=== PATIENT | female | born 1960 | race Asian ===

== ENCOUNTER 2020-01-12 23:57 | Emergency (ER) | payer OTHER ==
[2020-01-13] MEDS ORDERED: methylPREDNISolone NA SUCC 125 MG/2 ML VIAL IVPB ONE (00:05)
[2020-01-13] MEDS ORDERED: SODIUM CHLORIDE 0.9% 500 ML INFUS.BAG IV ONE (00:05)
[2020-01-13] MEDS ORDERED: FAMOTIDINE 20 MG/50 ML IVPB 20 MG/50 ML MG IVPB ONE ×2 (00:05→00:57)
[2020-01-13] MEDS ORDERED: methylPREDNISolone NA SUCC 125 MG/2 ML VIAL ONE (00:09)
[2020-01-13 00:19] VITALS: BP 112/88; TEMP 98.6; BMI 26.4
[2020-01-13] MEDS ORDERED: EPINEPHrine 1:1,000 0.3 MG/0.3 ML SYR IM ONE (00:20)
[2020-01-13] MEDS ORDERED: EPINEPHrine/PF 1 MG/1 ML (1:1,000) AMPULE ONE (00:23)
[2020-01-13 00:27] LABS: BASO % 1.2 % (0-2.0); EOS % 0.5 % (0-4.5); HEMATOCRIT 48.7 % (32.4-45.2); HEMOGLOBIN 16.5 GM/dL (10.7-15.3); LYMPH % 57.9 % (8-40); MCH 29.8 pg (25.7-33.7); MEAN CELL VOLUME 87.8 fl (80-96); MEAN PLT VOLUME 7.7 fl (7.5-11.1); NEUT % 34.4 % (42.8-82.8); PLATELET COUNT 384 K/MM3 (134-434); RBC 5.55 M/mm3 (3.60-5.2); RDW 13.2 % (11.6-15.6); WHITE BLOOD COUNT 9.5 K/mm3 (4.0-10.0)
[2020-01-13 00:34] LABS: INR 0.77 (0.83-1.09); PROTHROMBIN TIME (PATIENT) 9.6 SEC (9.7-13.0)
[2020-01-13 00:37] LABS: ACTIVATED PTT 31.4 SECONDS (25.2-36.5)
[2020-01-13 00:45] LABS: POTASSIUM 3.9 mmol/L (3.5-5.1)
[2020-01-13 00:48] LABS: CALCIUM 8.5 mg/dL (8.5-10.1)
[2020-01-13 00:49] LABS: ALBUMIN 3.8 g/dl (3.4-5.0); BLOOD UREA NITROGEN 17.4 mg/dL (7-18)
[2020-01-13 00:51] LABS: CREATININE 0.8 mg/dL (0.55-1.3)
[2020-01-13 00:53] LABS: TOT PROT 7.5 g/dl (6.4-8.2)
[2020-01-13 07:41] VITALS: PULSE 74
== END 2020-01-13 08:05 | disposition home or self-care (01) ==
LOC: JER 23:57
PROC: 3E033NZ Introduction of Analgesics, Hypnotics, Sedatives into Peripheral Vein, Percutaneous Approach (ICD-10-PCS; principal; 2020-01-13)
PROC: 3E033GC Introduction of Other Therapeutic Substance into Peripheral Vein, Percutaneous Approach (ICD-10-PCS; 2020-01-13)
PROC: 3E023NZ Introduction of Analgesics, Hypnotics, Sedatives into Muscle, Percutaneous Approach (ICD-10-PCS; 2020-01-13)
DX: T78.40XA Allergy, unspecified, initial encounter (principal)
CPT/HCPCS: 36415; 71045-TC-FY; 80053; 85025; 85610; 85730; 99285-25

== ENCOUNTER 2020-01-26 18:27 | Emergency (ER) | payer OTHER ==
[2020-01-26 18:34] VITALS: BP 189/98; PULSE 90; TEMP 97.9; BMI 25.1
[2020-01-26] MEDS ORDERED: DIPHTH,PERTUSS(ACELL),TET 0.5 ML DISP.SYRIN IM ONE ×2 (18:52→19:03)
[2020-01-26] MEDS ORDERED: CLINDAMYCIN HCL 150 MG CAPSULE (FP) PO ONE (19:29)
[2020-01-26] MEDS ORDERED: CLINDAMYCIN HCL 150 MG CAPSULE (FP) ONE (19:34)
== END 2020-01-26 20:10 | disposition home or self-care (01) ==
LOC: JERFT 18:27
PROC: 3E0234Z Introduction of Serum, Toxoid and Vaccine into Muscle, Percutaneous Approach (ICD-10-PCS; principal; 2020-01-26)
DX: S68.119A Complete traumatic metacarpophalangeal amputation of unspecified finger, initial encounter (principal)
CPT/HCPCS: 73140-TC-LT-FY; 90715; 99284-25

== ENCOUNTER 2021-03-05 07:52 | Emergency (ER) | payer OTHER ==
[2021-03-05 08:30] VITALS: BP 138/83; PULSE 75; TEMP 97.9; BMI 25.9
[2021-03-05] MEDS ORDERED: IBUPROFEN 400 MG TABLET (FP) PO ONE ×3 (11:52→12:23)
== END 2021-03-05 12:30 | disposition home or self-care (01) ==
LOC: JER 07:52
DX: M54.50 Low back pain, unspecified (principal); W00.0XXA Fall on same level due to ice and snow, initial encounter
CPT/HCPCS: 72131-TC; 99284-25